=== PATIENT | male | born 1990 | race Two or more races ===

== ENCOUNTER 2022-02-23 00:31 | Emergency (ER) | payer OTHER ==
[~2022-02-23] VITALS: Ht 172.7 cm; Wt 108.9 kg
[2022-02-23] MEDS ORDERED: RITALIN20 MG (00:46)
[2022-02-23] MEDS ORDERED: KETO10TA2 PO (05:20)
[2022-02-23] MEDS ORDERED: CEPHALEXIN500 MG PO (05:20)
== END 2022-02-23 05:26 ==
LOC: ER 00:31
DX: L05.91 Pilonidal cyst without abscess (principal)

== ENCOUNTER 2024-12-10 22:59 | Emergency (ER) | payer OTHER ==
[~2024-12-10] VITALS: Ht 175.3 cm; Wt 115.7 kg
[~2024-12-10 22:59] MED LIST: CEPHALEXIN500 MG PO; KETO10TA2 PO; RITALIN20 MG
[2024-12-10] MEDS ORDERED: AMOX1TAB5 PO (23:41)
[2024-12-10] MEDS ORDERED: GENTAMICIN SULFA5 ML OTIC (23:41)
[2024-12-10] MEDS ORDERED: PEPCID AC20 MG PO (23:41)
== END 2024-12-11 00:33 | disposition home or self-care (01) ==
LOC: ER 23:01
DX: H66.91 Otitis media, unspecified, right ear (principal); J45.909 Unspecified asthma, uncomplicated; F98.8 Other specified behavioral and emotional disorders with onset usually occurring in childhood and adolescence

== ENCOUNTER 2025-09-04 18:49 | Emergency (ER) | payer OTHER ==
[~2025-09-04] VITALS: Ht 152.4 cm; Wt 113.4 kg
[~2025-09-04 18:49] MED LIST changes: +AMOX1TAB5 PO; +GENTAMICIN SULFA5 ML OTIC; +PEPCID AC20 MG PO
[2025-09-04] MEDS ORDERED: FAMOTIDINE/PF 20 MG/2 ML VIAL IV ONE (19:45)
[2025-09-04] MEDS ORDERED: 0.9 % SODIUM CHLORIDE 1,000 ML IV ONE (19:45)
[2025-09-04] MEDS ORDERED: ONDANSETRON HCL 2 MG/ML VIAL IV ONE (19:45)
[2025-09-04] MEDS ORDERED: FAMOTIDINE/PF 20 MG/2 ML VIAL ONE (20:02)
[2025-09-04] MEDS ORDERED: ONDANSETRON HCL 2 MG/ML VIAL ONE (20:02)
[2025-09-04 20:32] LABS: BASO % 0.2 % (0.1-1.2); EOS # 0.02 (0.04-0.54); EOS % 0.2 % (0.7-7.0); LYMPH # 1.42 (1.18-3.74); LYMPH % 13.4 % (19.3-53.1); MEAN PLATELET VOLUME 9.90 fl (9.4-12.4); MONO # 0.58 (0.24-0.82); MONO % 5.5 % (4.7-12.5); NEUT # 8.54 (1.56-6.13); NEUT % 80.4 % (34.0-71.1); RED CELL DISTRIBUTION WIDTH 14.1 % (11.6-14.4)
[2025-09-04 20:57] LABS: INR 1.02
[2025-09-04 21:03] LABS: BILIRUBIN TOTAL 1.12 mg/dL (0.3-1.2); BILIRUBIN,CONJUGATED 0.26 mg/dL (0.0-0.2)
[2025-09-04 21:05] LABS: ALT/SGPT 67.0 U/L (12-78); AST/SGOT 29.0 U/L (15-37); BILIRUBIN TOTAL 1.13 mg/dL (0.3-1.2); BUN CREA RATIO 13.0 (7.0-25.0); CREATININE SERUM 1.06 mg/dL (0.70-1.30); GFR 80.46; GLOBULINA 4.0 G/DL (2.4-3.5); GLUCOSE FASTING 98.0 mg/dL (65-100); OSMOLALITY SERUM 280.0 MOSM/KG (275-295)
[2025-09-04] MEDS ORDERED: PEPCID AC20 MG PO (22:17)
[2025-09-04] MEDS ORDERED: ZOFRAN8 MG PO (22:17)
[2025-09-05 01:21] LABS: URINE APPEARANCE Clear; URINE BACTERIA 14.3 uL (0.0-1933); URINE BILIRRUBIN Small (NEGATIVE); URINE BLOOD Negative; URINE COLOR Dark Yellow; URINE EPITHELIAL CELLS 11.9 uL (0.0-38.8); URINE GLUCOSE Negative (NEGATIVE); URINE LEUKOCYTE Negative; URINE NITRATE Negative; URINE RBC 15.5 uL (0.0-20.8); URINE UROBILINOGEN 1.0 E.U./dl; URINE WBC 10.4 uL (0.0-23.2)
[2025-09-05 01:23] LABS: URINE CAST 1.31 uL (0.0-1.40); URINE KETONE 40 (NEGATIVE); URINE MUCUS NEGATIVE; URINE PROTEIN 100 (NEGATIVE)
== END 2025-09-05 02:17 | disposition home or self-care (01) ==
LOC: ER 18:50
DX: K52.9 Noninfective gastroenteritis and colitis, unspecified (principal); R11.10 Vomiting, unspecified